=== PATIENT | male | born 1975 | race Caucasian/White ===

== ENCOUNTER 2020-05-26 20:51 | Inpatient (IN) | payer MEDICAID, OTHER ==
--- NOTE | 2020-05-26 21:00 | ED ---
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 Patient has a pickup order and brought by the police. According to the report, the patient has not been taking his medication. Patient states he is feeling more depressed than usual. States she doesn't feel like waking up and going to work. States he has not been to work for the past days. States that the psychiatric medication make him feel "cloudy and not right". He denies any suicidal, homicidal thoughts or ideations. Has no other complaints at this time. (Gideon Jackson) - Related Data Home Medications Medication Instructions Recorded Confirmed Naltrexone HCl [Revia] 50 mg PO DAILY 05/26/20 05/26/20 hydrOXYzine HCL [Atarax] 25 mg PO Q6H PRN 05/26/20 05/26/20 Previous Rx's Medication Instructions Recorded Folic Acid 1 mg PO DAILY #30 tab 05/31/20 Magnesium Oxide [Mag-Ox] 400 mg PO BID #60 tab 05/31/20 Multivitamins, Thera [Multivitamin 1 each PO DAILY #30 tab 05/31/20 (formulary)] Nicotine 14Mg/24Hr Patch [Habitrol] 1 patch TRANSDERM DAILY patch 05/31/20 QUEtiapine [SEROquel] 100 mg PO HS #30 tab 05/31/20 Sertraline [Zoloft] 100 mg PO DAILY #30 tab 05/31/20 Thiamine [Vitamin B-1] 100 mg PO DAILY #30 tab 05/31/20 Allergies Allergy/AdvReac Type Severity Reaction Status Date / Time Sulfa (Sulfonamide AdvReac Rapid Verified 05/26/20 22:36 Antibiotics) Heart Rate Review of Systems ROS Other: All systems not noted in ROS Statement are negative. <Gideon Jackson - Last Filed: 05/26/20 23:01> ROS Other: All systems not noted in ROS Statement are negative. <Rd Ramirez - Last Filed: 05/31/20 10:00> ROS Statement: Those systems with pertinent positive or pertinent negative responses have been documented in the HPI. Past Medical History Past Medical History: No Reported History History of Any Multi-Drug Resistant Organisms: None Reported Past Surgical History: No Surgical Hx Reported Past Psychological History: Anxiety, Depression Smoking Status: Current every day smoker Past Alcohol Use History: Daily Past Drug Use History: None Reported <Gideon Jackson - Last Filed: 05/26/20 23:01> - Past Family History family Family Medical History: No Reported History <JamesRd - Last Filed: 05/31/20 10:00> General Exam Limitations: no limitations General appearance: alert, in no apparent distress, other (Poor hygiene.) Head exam: Present: atraumatic, normocephalic, normal inspection Eye exam: Present: normal appearance, PERRL, EOMI Pupils: Present: normal accommodation ENT exam: Present: normal exam, normal oropharynx, mucous membranes moist, TM's normal bilaterally, normal external ear exam Neck exam: Present: normal inspection, full ROM. Absent: tenderness Respiratory exam: Present: normal lung sounds bilaterally. Absent: respiratory distress, wheezes, rales Cardiovascular Exam: Present: regular rate, normal rhythm, normal heart sounds Extremities exam: Present: normal inspection, full ROM, normal capillary refill. Absent: tenderness, pedal edema, joint swelling Back exam: Present: normal inspection, full ROM. Absent: tenderness, CVA tenderness (R), CVA tenderness (L) Neurological exam: Present: alert, oriented X3 Psychiatric exam: Present: normal affect, depressed Skin exam: Present: warm, dry, intact, normal color <Gideon Jackson - Last Filed: 05/26/20 23:01> Course Vital Signs 05/26/20 20:53 Temperature 98 F Pulse Rate 100 Respiratory 19 Rate Blood Pressure 143/99 O2 Sat by Pulse 97 Oximetry Medical Decision Making <Gideon Jackson - Last Filed: 05/26/20 23:01> - Lab Data Result diagrams: 05/28/20 06:47 05/30/20 06:34 <JamesRd - Last Filed: 05/31/20 10:00> - Medical Decision Making 45-year-old male presenting to emergency Department for psychiatric evaluation. Patient is here for a pickup order because he is not taking his medication and has increased depression. No homicidal, suicidal thoughts or ideations. At this time, patient care will be signed off to . (Gideon Jackson) - Lab Data Lab Results 05/26/20 05/27/20 Range/Units 21:19 00:53 Urine Opiates Screen Not Detected (NotDetected) Ur Oxycodone Screen Not Detected (NotDetected) Urine Methadone Screen Not Detected (NotDetected) Ur Propoxyphene Screen Not Detected (NotDetected) Ur Barbiturates Screen Not Detected (NotDetected) U Tricyclic Antidepress Not Detected (NotDetected) Ur Phencyclidine Scrn Not Detected (NotDetected) Ur Amphetamines Screen Not Detected (NotDetected) U Methamphetamines Scrn Not Detected (NotDetected) U Benzodiazepines Scrn Not Detected (NotDetected) Urine Cocaine Screen Not Detected (NotDetected) U Marijuana (THC) Screen Not Detected (NotDetected) Coronavirus (PCR) Not Detected (Not Detectd) Disposition <Gideon Jackson - Last Filed: 05/26/20 23:01> Is patient prescribed a controlled substance at d/c from ED?: No <Rd Ramirez - Last Filed: 05/31/20 10:00> Clinical Impression: Mood disorder Disposition: ADMITTED IP TO THIS HOSP Condition: Good
[2020-05-26 22:00] LABS: Amphetamine Screen,Urine Not Detected (NotDetected); Barbiturate Screen,Urine Not Detected (NotDetected); Benzodiazepines Screen,Urine Not Detected (NotDetected); Cocaine Screen,Urine Not Detected (NotDetected); Methadone Screen, Urine Not Detected (NotDetected); Opiate Screen,Urine Not Detected (NotDetected); Oxycodone Screen, Urine Not Detected (NotDetected); Phencyclidine Screen,Urine Not Detected (NotDetected); Tricyclic Antidepressant,Urine Not Detected (NotDetected); Urn Cannabinoid Scrn Not Detected (NotDetected)
[2020-05-27] MEDS ORDERED: ACETAMINOPHEN TAB 325 MG TAB PO PRN (01:50)
[2020-05-27] MEDS ORDERED: MAGNESIUM HYDROXIDE 2,400 MG/10 ML CUP PO PRN (01:50)
[2020-05-27] MEDS ORDERED: MAG HYDROX/AL HYDROX/SIMETH 30 ML CUP PO PRN (01:50)
[2020-05-27] MEDS ORDERED: hydrOXYzine HCL 25 MG TAB PO PRN (01:53)
[2020-05-27] MEDS ORDERED: LORazepam 2 MG/ML INJ IM PRN (02:34)
[2020-05-27] MEDS ORDERED: HALOPERIDOL LACTATE 5 MG/ML 1 ML VIAL IM PRN (02:36)
[2020-05-27] MEDS: NALTREXONE HCL 50 MG TAB PO SCH (08:48)
[2020-05-27] MEDS: NICOTINE 14MG/24HR PATCH TRANSDERM SCH (08:48)
[2020-05-27] MEDS ORDERED: CITALOPRAM HYDROBROMIDE 20 MG TAB PO SCH (09:00)
[2020-05-27 12:25] VITALS: BMI 18.8
[2020-05-27] MEDS: SERTRALINE 50 MG TAB PO SCH (12:36)
[2020-05-27] MEDS: LORazepam 1 MG TAB PO PRN ×2 (13:13→16:43)
--- NOTE | 2020-05-27 13:33 | P.HP ---
Psychiatric H&P - . H&P Date: 05/27/20 History & Physical: Allergies Allergy/AdvReac Type Severity Reaction Status Date / Time Sulfa (Sulfonamide AdvReac Rapid Verified 05/26/20 22:36 Antibiotics) Heart Rate Vital Signs Temp 97.4 F L 05/27/20 10:39 Pulse 93 05/27/20 02:13 Resp 18 05/27/20 02:13 BP 142/100 05/27/20 02:13 Pulse Ox 98 05/27/20 02:13 Intake & Output 05/26/20 05/27/20 05/27/20 18:59 06:59 18:59 Weight 56.3 kg 56.3 kg Laboratory Last Values Urine Opiates Screen Not Detected (NotDetected) 05/26/20 21:19 Ur Oxycodone Screen Not Detected (NotDetected) 05/26/20 21:19 Urine Methadone Screen Not Detected (NotDetected) 05/26/20 21:19 Ur Propoxyphene Screen Not Detected (NotDetected) 05/26/20 21:19 Ur Barbiturates Screen Not Detected (NotDetected) 05/26/20 21:19 U Tricyclic Antidepress Not Detected (NotDetected) 05/26/20 21:19 Ur Phencyclidine Scrn Not Detected (NotDetected) 05/26/20 21:19 Ur Amphetamines Screen Not Detected (NotDetected) 05/26/20 21:19 U Methamphetamines Scrn Not Detected (NotDetected) 05/26/20 21:19 U Benzodiazepines Scrn Not Detected (NotDetected) 05/26/20 21:19 Urine Cocaine Screen Not Detected (NotDetected) 05/26/20 21:19 U Marijuana (THC) Screen Not Detected (NotDetected) 05/26/20 21:19 Coronavirus (PCR) Not Detected (Not Detectd) 05/27/20 00:53 05/27/20 12:27 IDENTIFYING DATA: Patient is a 45-year-old male who currently lives alone in an efficiency has 2 kids and works as a home health care provider and is currently . HPI: Patient presented to the hospital yesterday on a pickup order by the police. According to ER report patient has not been taking his medications and appeared to be more depressed and not going to work. Patient's UDS was negative. Patient signed voluntary for admission. Patient was seen on the unit and appears to be disheveled in appearance poor hygiene and grooming. He claims that he is dealing with his "depression and anxiety" prior to coming in the hospital and states that this has been going on for several months now. He states that he has not been going to work and not caring for himself for the past 3 days. He states that "I just sit around" when asked what he does during the day when he is not at work. He states that he has had a poor appetite and has also been losing 15 pounds approximately the last month. He states that his family has been concerned about him and sent the senior laboratory technician to go and check on him. He claims that he was having suicidal thoughts at home about wanting to cut himself. He claims that he is not having any triggers at all in his life or any stressors. He states that he has not been taking his medications and has have poor sleep. He states that at nighttime he isn't having racing thoughts. He claims that currently he is having mild withdrawal symptoms including mainly anxiety and cravings. He denies any history of delirium tremens in the past or any withdrawal seizures from alcohol. Patient denies any suicidal or homicidal ideations intent or plan. At this time patient denies visual hallucinations however does state that he is hearing voices mainly in the nighttime however is vague about what they're saying to him. Patient denies any flight of ideas racing thoughts and increased in goal directed behavior. Patient admits to using alcohol daily approximately half a pint of whiskey and also claims that he smokes cigarettes PAST PSYCHIATRIC HISTORY: Patient states that he has a history of depression and anxiety. Patient was previously on Abilify, Celexa, naltrexone and Atarax however states that he has not been taking his medications regularly. He claims that he has been admitted to psychiatric hospital several times in the past however his last hospitalization was at [facility] in [place] in the summer. Patient denies any psychiatric outpatient follow-up. He claims that he follows up with his PCP who prescribes him his psychiatric medications. Patient denies any history of suicide attempts in the past. PMH:denies ALLERGIES: as per EMR CHEMICAL DEPENDENCY HISTORY: as per HPI FAMILY PSYCHIATRIC/SUBSTANCE USE HISTORY: Bipolar disorder in his sister. SOCIAL HISTORY: Patient was born and raised in [place] and also in [place]. He states that he completed his high school degree. He currently lives alone in an efficiency has 2 kids is and works as a home health care provider. He states that he has been to snf "25 times" for "supreme court justice stuff". He also claims that he's been charged in the past for aggravated assault. MENTAL STATUS EXAM: General Appearance: Patient appears to be with an stated age is alert, directable, and attempts to cooperate. Patient appears to have poor hygiene and grooming. Disheveled appearance. Behavior: Patient is seated without any agitated behavior. Speech: Patient's speech is fluent and nonpressured. Soft tone of voice. Mood/Affect: Patient reports their mood is depressed, affect is congruent and constricted. Suicidality/Homicidality: Patient denies having any homicidal ideation intent or plan. Denies any suicidal ideations intent or plan Perceptions: Patient denies any visual hallucinations and admits to auditory hallucinations mainly at nighttime. Though content/process: There is no evidence of any delusional thought content and thought process is linear and goal-directed. [place]. Memory and concentration: AOX3, grossly intact for the purposes of this session. Can spell "WORLD" backwards Judgment and insight: poor STRENGTHS/WEAKNESSES: strength is that patient is resilient. Weakness is that patient has poor judgment and has been noncompliant with his medications. INTELLECT: average IMPRESSIONS: Depressive disorder unspecified, rule out bipolar depression Anxiety disorder unspecified Alcohol use disorder, currently in withdrawal Nicotine dependence PLAN: -Patient is admitted under voluntary status to [facility]HU for stabilization of psychiatric symptoms and safety. Patient has signed adult voluntary form and medication consent and is placed in patient's chart. -Medications : Will start patient on Zoloft 50 mg daily for mood/anxiety. Seroquel 50 mg daily at bedtime for insomnia/mood stabilization. Vistaril when necessary for anxiety. -Ativan and Haldol PRN for agitation/aggression -Started thiamine, MVM for etoh use -CIWA protocol with Ativan PRN for ETOH withdrawal -Patient was counselled on substance abuse and desired to cut back on use -Patient was informed of the risks, benefits and side effects of the medication and patient verbally consented to taking the medications. Patient signed med consent form and was placed in chart. -Internal Medicine consult to perform medical evaluation and physical. -NRT - nicotine patch -SW on board for discharge planning. Encourage patient to participate in groups to work on coping skills. 05/27/20 13:24
[2020-05-27] MEDS: QUEtiapine 50 MG TAB PO SCH (21:43)
--- NOTE | 2020-05-27 22:22 | P.MDCNMH ---
History of Present Illness H&P Date: 05/27/20 Chief Complaint: medical evaluation 45 year old male with depresison patient comes in after being picked up by police for psychiatric evaluation , he has not been taking his medication as it makes him feel foggy. he has been experiencing depression and behavioral changes, refusing to go to work. and disheveled. denies suicidal ideation. he denies any medical concerns like fever, chills, chest pain , URI symptoms, or GI changes he is feeling some shakes and jitteriness, he feels like going through alcohol withdrawal , he admits to drinking a pint of alcohol on daily basis, denies any withdrawal seizures in the past, he also admits to tobacco smoking Review of Systems Pertinent positives as noted in HPI. All other systems were reviewed and are negative Past Medical History Past Medical History: No Reported History History of Any Multi-Drug Resistant Organisms: None Reported Past Surgical History: No Surgical Hx Reported Past Psychological History: Anxiety, Depression Smoking Status: Current every day smoker Past Alcohol Use History: Daily Past Drug Use History: None Reported - Past Family History family Family Medical History: No Reported History Medications and Allergies Home Medications Medication Instructions Recorded Confirmed Type ARIPiprazole [Abilify] 10 mg PO DAILY 05/26/20 05/26/20 History Citalopram Hydrobromide [CeleXA] 20 mg PO DAILY 05/26/20 05/26/20 History Naltrexone HCl [Revia] 50 mg PO DAILY 05/26/20 05/26/20 History hydrOXYzine HCL [Atarax] 25 mg PO Q6H PRN 05/26/20 05/26/20 History Allergies Allergy/AdvReac Type Severity Reaction Status Date / Time Sulfa (Sulfonamide AdvReac Rapid Verified 05/26/20 22:36 Antibiotics) Heart Rate Physical Exam Vitals: Vital Signs Temp Pulse Resp BP Pulse Ox 05/27/20 21:45 97.2 F L 104 H 18 130/93 96 05/27/20 18:29 98.4 F 05/27/20 16:41 114 H 123/91 05/27/20 13:20 99 148/106 05/27/20 10:39 97.4 F L 05/27/20 02:13 98.7 F 93 18 142/100 98 Intake and Output 05/27/20 05/27/20 05/27/20 06:59 14:59 22:59 Other: Weight 56.3 kg 56.3 kg Constitutional: No acute distress, conversant, pleasant Eyes: Anicteric sclerae, moist conjunctiva, Pupils equal round reactive to light ENMT: NC/AT Oropharynx clear, no erythema, or exudates Neck: Supple, FROM, no masses, or JVD No carotid bruits No thyromegaly Lungs: Clear to auscultation Clear to percussion Normal respiratory effort, no accessory muscle use Cardiovascular: Heart regular in rate and rhythm, No murmurs, gallops, or rubs No peripheral edema Abdominal: Soft Nontender, no guarding, rebound or rigidity Abdomen moving with respiration Normoactive bowel sounds No hepatomegaly, No splenomegaly No palpable mass No abdominal wall hernia noted Skin: Normal temperature, tone, texture, turgor No induration No subcutaneous nodules No rash, lesions No ulcers Extremities: No digital cyanosis No clubbing Pedal pulses intact and symmetrical Radial pulses intact and symmetrical No calf tenderness Psychiatric: Alert and oriented to person, place and time depresed affect fair judgement Neuro Muscles Strength 5/5 in all 4 extremities Sensation to light touch grossly present throughout Cranial nerves II-XII grossly intact No focal sensory deficits Lymphatics: no palpable cervical or supraclavicular , or inguinal lymph nodes Cranial Nerve Examination - Cranial Nerves Cranial Nerve II- Optic: Intact Cranial Nerve III- Oculomotor: Intact Cranial Nerve IV- Trochlear: Intact Cranial Nerve V- Trigeminal: Intact Cranial Nerve - Abducens: Intact Cranial Nerve VII- Facial: Intact Cranial Nerve VIII- Auditory: Intact Cranial Nerve IX- Glossopharyngeal: Intact Cranial Nerve X- Vagus: Intact Cranial Nerve XI- Accessory: Intact Cranial Nerve XII- Hypoglossal: Intact Assessment and Plan Assessment: depression , behavioral changes medical non compliance management per psych alcohol abuse alcohol withdrawal syndrome Benzo per CIWA scale thiamine counseled to cut back on alcohol tobacco smoking counseled to quit smoking nicotine replacement therapy offered follow up labs Thank you for allowing us to participate in the care of this patient. We will follow peripherally. Do not hesitate to contact us with questions. Someone can be reached from the [facility] hospitalist group at all hours of the day at [phone].
[2020-05-28 07:25] LABS: Basophils % (A) 1 %; Eosinophils # (A) 0.2 k/uL (0-0.7); Eosinophils % (A) 2 %; HCT 38.4 % (39.0-53.0); HGB 13.6 gm/dL (13.0-17.5); Lymphocytes # (A) 1.4 k/uL (1.0-4.8); Lymphocytes % (A) 21 %; MCH 35.5 pg (25.0-35.0); MCHC 35.4 g/dL (31.0-37.0); MCV 100.3 fL (80.0-100.0); Mean Platelet Volume 7.6; Monocytes # (A) 0.4 k/uL (0-1.0); Monocytes % (A) 6 %; Neutrophils # (A) 4.6 k/uL (1.3-7.7); Neutrophils % (A) 68 %; Platelet Count 139 k/uL (150-450); RBC 3.83 m/uL (4.30-5.90); RDW 12.5 % (11.5-15.5); WBC 6.8 k/uL (3.8-10.6)
[2020-05-28 07:36] LABS: ALT 42 U/L (4-49); AST 70 U/L (17-59); African American GFR (CKD) >90 (>60 ml/min/1.73 sqM); Albumin 3.5 g/dL (3.5-5.0); Alkaline Phosphatase 97 U/L (38-126); Anion Gap 1 mmol/L; Blood Urea Nitrogen 9 mg/dL (9-20); Calcium 9.8 mg/dL (8.4-10.2); Carbon Dioxide 37 mmol/L (22-30); Chloride 97 mmol/L (98-107); Cholesterol 171 mg/dL (<200); Glucose 91 mg/dL (74-99); HDL Cholesterol 107 mg/dL (40-60); LDL Cholesterol,Calculated 55 mg/dL (0-99); Non-African American GFR(CKD) >90 (>60 ml/min/1.73 sqM); Sodium 135 mmol/L (137-145); Total Bilirubin 1.6 mg/dL (0.2-1.3); Total Protein 6.1 g/dL (6.3-8.2); Triglycerides 46 mg/dL (<150)
[2020-05-28] MEDS: NICOTINE 14MG/24HR PATCH TRANSDERM SCH (08:38)
[2020-05-28] MEDS: NALTREXONE HCL 50 MG TAB PO SCH (08:39)
[2020-05-28] MEDS: MULTIVITAMINS, THERA 1 EACH TAB PO SCH (08:39)
[2020-05-28] MEDS: SERTRALINE 50 MG TAB PO SCH (08:39)
[2020-05-28] MEDS: FOLIC ACID 1 MG TAB PO SCH (08:39)
[2020-05-28] MEDS: THIAMINE 100 MG TAB PO SCH (08:39)
[2020-05-28] MEDS: LORazepam 1 MG TAB PO PRN ×2 (08:40→19:40)
[2020-05-28] MEDS ORDERED: POTASSIUM CHLORIDE ER 20 MEQ TAB.ER PO STA (08:59)
--- NOTE | 2020-05-28 10:26 | P.PN ---
Progress Note - Text Progress Note Date: 05/28/20 Interval History: Patient was seen lying in his bed this morning and was directable and agreeable to speak with filing writer in the office. Patient claims that she is feeling mild improvement today in terms of his mood. He claims that he was able to sleep better last night however states that he got up twice in the middle of the night. He claims that he wants to remain on the same dose of Seroquel for now to see if he sleeps better tonight and if not is willing to have this dose increased. He claims that he is not having suicidal thoughts any longer. He is continuing to isolate himself during the day at times and continues to have poor hygiene and grooming and was encouraged to bathe today. He appears to be more appropriate and directable during conversation however continues to be concrete and a poverty of content. He states that he talked to his family yesterday and he feels that he is" no presley to get out of here". At this time patient denies any suicidal or homical ideations, intent or plan. Patient denies any visual hallucinations and denies any paranoia or delusions. He does state that he is still hearing voices at times during the day however was vague about what they're telling him. Patient denies any side effects from the medications and has been compliant with meds. Mental Status Exam: General Appearance: Patient appears to be with an stated age is alert, directable, and attempts to cooperate. Patient appears to have poor hygiene and grooming. Disheveled appearance. Behavior: Patient is seated without any agitated behavior. Attempts to be more cooperative today. Speech: Patient's speech is fluent and nonpressured. Mood/Affect: Patient reports their mood is depressed, improving mildly, affect is congruent and constricted. Suicidality/Homicidality: Patient denies having any homicidal ideation intent or plan. Denies any suicidal ideations intent or plan Perceptions: Patient denies any visual hallucinations and admits to auditory hallucinations mainly at nighttime. Though content/process: There is no evidence of any delusional thought content and thought process is linear and goal-directed. [place], poverty of content. Memory and concentration: AOX3, grossly intact for the purposes of this session Judgment and insight: poor, improving mildly Assessment Depressive disorder unspecified, rule out bipolar depression Anxiety disorder unspecified Alcohol use disorder, currently in withdrawal Nicotine dependence Plan: -Patient continues to meet criteria for inpatient psychiatric admission for symptom stabilization and safety. Patient has signed adult voluntary form and medication consent and was placed in patient's chart. -Medications: Continue Zoloft 50 mg daily for mood/anxiety, continue titrated up tomorrow if necessary. Continue with Seroquel 50 mg daily at bedtime for insomnia/mood stabilization with plan to increase if patient continues to have difficulties with sleep and auditory hallucinations. Vistaril when necessary for anxiety. -thiamine, MVM for etoh use -CIWA protocol with Ativan PRN for ETOH withdrawal. continue to monitor closely. -When necessary Ativan and Haldol for agitation/aggression. -NRT - nicotine patch -SW on board for discharge planning. Encouraged the patient to participate in milieu.
[2020-05-28 14:40] LABS: Hemoglobin A1C 4.8 % (4.0-6.0)
[2020-05-28] MEDS: QUEtiapine 50 MG TAB PO SCH (20:22)
[2020-05-29 06:48] LABS: African American GFR (CKD) >90 (>60 ml/min/1.73 sqM); Anion Gap 1 mmol/L; Blood Urea Nitrogen 19 mg/dL (9-20); Calcium 10.1 mg/dL (8.4-10.2); Carbon Dioxide 37 mmol/L (22-30); Chloride 95 mmol/L (98-107); Glucose 89 mg/dL (74-99); Non-African American GFR(CKD) >90 (>60 ml/min/1.73 sqM); Sodium 133 mmol/L (137-145)
[2020-05-29] MEDS: SERTRALINE 50 MG TAB PO SCH (08:20)
[2020-05-29] MEDS: NALTREXONE HCL 50 MG TAB PO SCH (08:20)
[2020-05-29] MEDS: FOLIC ACID 1 MG TAB PO SCH (08:20)
[2020-05-29] MEDS: THIAMINE 100 MG TAB PO SCH (08:20)
[2020-05-29] MEDS: MULTIVITAMINS, THERA 1 EACH TAB PO SCH (08:21)
[2020-05-29] MEDS: NICOTINE 14MG/24HR PATCH TRANSDERM SCH (08:21)
--- NOTE | 2020-05-29 13:09 | P.PN ---
Progress Note - Text Progress Note Date: 05/29/20 Clinical Problems: Alcohol withdrawal, rule out alcohol withdrawal delirium, alcohol use disorder severe, alcohol induced mood disorder, rule out major depressive disorder Interim history: I reviewed the medical record, interviewed the patient and discussed his treatment and treatment plan during team meeting. He is a 45-year-old male admitted to the psychiatric unit involuntarily with a recent history of marked social withdrawal. His family called the police for safety check because she had not been to work in 3 days and did not answer the telephone. 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 He told his admitting psychiatrist that he was overwhelmed with feelings depression and anxiety. He did not leave the apartment and did not go to work because he "didn't want to." He also had thoughts of suicide including thoughts of cutting himself. He spent his time alone in his apartment drinking alcohol. Although he is a drink so about 1/2 pint of whiskey daily he was drinking at least 1 pint daily during the time he isolated himself. He talked about drinking until he passed out or until he ran out of whiskey. His treatment history is significant for "5 or 6" residential substance abuse treatment episodes. He was difficult to interview this morning because she was lethargic and difficulty concentrating and attending to the interview. He has had mild to moderate alcohol withdrawal symptoms with CIWA scores ranging from 4-14. However, last night he became acutely agitated and attempted to leave the unit. He could not be redirected and was sedated with 1 mg of Ativan and 4 mg of Haldol IM. He alleged that he had to leave the unit because he had to help his cousin change the lock. He believed his cousin was outside the door and needed assistance with changing the lock. Mental status exam: He presented as a disheveled-appearing middle-aged male who is moderately sedated. He made eye contact but had difficulty attending and concentrating to interview. He had no prominent physical abnormalities. He had a blunted facial expression. He was alert and oriented to person and place. He had psychomotor retardation but no abnormal movements. Her speech was not spontaneous and decreased rate and rhythm. His affect was depressed and not reactive. He denied current suicidal ideation and wishes. He denied homicidal ideation. He expressed feelings of hopelessness and helplessness. He did not express ideas reference, paranoid ideation or delusions. Her thinking was concrete but his associations were coherent, logical and goal directed. He denied hallucinations did not appear to be responding to internal stimuli. Assessment: He is a middle-age man with a history of an alcohol use disorder. He presented to unit voluntarily with complaints of depression, social withd hema, suicidal ideation and increased alcohol use. He had mild to moderate alcohol withdrawal symptoms until last night when he appears developed a delirium. He is currently sedated and there is no signs of confusion, delusions, paranoia or hallucinations. Plan: Continue inpatient treatment. Safety precautions. Continue Ativan 1 mg when necessary for alcohol withdrawal symptoms. Continue monitoring alcohol withdrawal severity with the CIWA. Monitor for signs and symptoms of delirium. Continue sertraline 50 mg daily and Seroquel 50 mg at bedtime for treatment of depression. Continue Haldol 64 mg IM or by mouth every 6 hours when necessary for agitation or aggression. Obtain collateral information from family. Encourage participation in therapeutic groups and activities. Evaluate clinical status response to treatment daily basis.
[2020-05-29] MEDS ORDERED: POTASSIUM CHLORIDE ER 20 MEQ TAB.ER PO STA (17:07)
[2020-05-29] MEDS: QUEtiapine 50 MG TAB PO SCH (21:47)
[2020-05-30 07:06] LABS: African American GFR (CKD) >90 (>60 ml/min/1.73 sqM); Anion Gap 5 mmol/L; Blood Urea Nitrogen 18 mg/dL (9-20); Calcium 9.7 mg/dL (8.4-10.2); Carbon Dioxide 32 mmol/L (22-30); Chloride 98 mmol/L (98-107); Glucose 82 mg/dL (74-99); Magnesium 1.2 mg/dL (1.6-2.3); Non-African American GFR(CKD) >90 (>60 ml/min/1.73 sqM); Potassium 3.9 mmol/L (3.5-5.1); Sodium 135 mmol/L (137-145)
[2020-05-30] MEDS: FOLIC ACID 1 MG TAB PO SCH (08:36)
[2020-05-30] MEDS: THIAMINE 100 MG TAB PO SCH (08:36)
[2020-05-30] MEDS: MULTIVITAMINS, THERA 1 EACH TAB PO SCH (08:36)
[2020-05-30] MEDS: SERTRALINE 50 MG TAB PO SCH (08:36)
[2020-05-30] MEDS: NALTREXONE HCL 50 MG TAB PO SCH (08:36)
[2020-05-30] MEDS: NICOTINE 14MG/24HR PATCH TRANSDERM SCH (08:36)
[2020-05-30] MEDS ORDERED: SERTRALINE 50 MG TAB PO ONE (08:45)
[2020-05-30 09:47] LABS: Appearance,Urine Clear (Clear); Bilirubin,Urine Negative (Negative); Blood,Urine Negative (Negative); Color,Urine Yellow; Glucose,Urine (UA) 2+ (Negative); Ketones,Urine Trace (Negative); Leukocyte Esterase,Urine Negative (Negative); Nitrite,Urine Negative (Negative); PH, Urine 7.5 (5.0-8.0); Protein,Urine Negative (Negative); Specific Gravity,Urine 1.018 (1.001-1.035)
--- NOTE | 2020-05-30 12:08 | P.PN ---
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 He denied experiencing alcohol withdrawal with the exception of a marked tremor. He denied feeling confused or paranoid. He remembers the incident early yesterday morning when he tried to leave the unit. He acknowledged that he could've been experiencing severe alcohol withdrawal. We completed the [facility] Assessment (Results below). After completing the assessment we discussed the results particularly the difficulties she experienced with verbal fluency and delayed recall. He revealed that he had a history of intravenous methamphetamine and heroin use. He had used methamphetamine for 7 years and heroin for 4 years. He is been abstinent for both for the last 7 years. He talked about having several overdoses including 2 that required hospitalization and resuscitation. He alleged that he was unresponsive for "several minutes" following an overdose and believes that he sustained some brain damage. He feels less depressed and anxious but continues half a restless sleep. His CIWA scores over the last 24 hours range from 0-1. Mental status exam: He presented as a casually groomed and somewhat disheveled appearing than 45-year-old male who was pleasant on approach. He made eye contact and attended the interview. He had a fine hand tremor but no prominent physical abnormalities. He had a bright facial expression. He had slight psychomotor retardation but no abnormal movements. His speech was spontaneous with normal rate and rhythm. His affect was blunted but stable and appropriate. He denied suicidal ideation and wishes. He denied homicidal ideation. He denied hopelessness, helplessness and worthlessness. He did not express ideas reference, paranoid ideation or delusions. His thinking was concrete. Associations were coherent and goal directed. He denied hallucinations and didn't appear to be responding to internal stimuli. On the [facility] Cognitive Assessment is told school was 22/30 and his Memory Index Score was 8/15. He showed no impairment with visual spatial/executive functioning, naming, attention or obstruction. He had poor language fluency (only naming 8 words during the fluency exam) and could recall only 2 of the 5 delayed recall words. He also had difficulties with orientation in that he thought today was Friday and it was at 27 of May. Assessment: Overall is much improved from admission. There is no evidence of alcohol withdrawal and delirium has fully resolved. He is showing impairments in cognitive functioning that could be related to his reported cerebral anoxia. Plan: Continue inpatient treatment. Safety precautions. Increase Zoloft to 100 mg daily and Seroquel to 100 mg at bedtime. Continue Haldol and Ativan IM or by mouth when necessary for agitation or aggression. Plan for discharge on 05/31/2020. Social work will coordinate discharge and aftercare services. Encourage continued participation in therapeutic groups and activities. Evaluate clinical status response to treatment daily basis.
[2020-05-30] MEDS ORDERED: POTASSIUM CHLORIDE ER 20 MEQ TAB.ER PO STA (12:25)
[2020-05-30] MEDS: MAGNESIUM OXIDE 400 MG TAB PO SCH ×2 (13:23→20:06)
[2020-05-30] MEDS ORDERED: QUEtiapine 100 MG TAB PO SCH (21:00)
[2020-05-31 07:04] VITALS: BP 100/65; PULSE 79; RESP 16; TEMP 97.5
[2020-05-31] MEDS: NICOTINE 14MG/24HR PATCH TRANSDERM SCH (08:02)
[2020-05-31] MEDS: NALTREXONE HCL 50 MG TAB PO SCH (08:03)
[2020-05-31] MEDS: MULTIVITAMINS, THERA 1 EACH TAB PO SCH (08:03)
[2020-05-31] MEDS: FOLIC ACID 1 MG TAB PO SCH (08:03)
[2020-05-31] MEDS: MAGNESIUM OXIDE 400 MG TAB PO SCH (08:03)
[2020-05-31] MEDS: THIAMINE 100 MG TAB PO SCH (08:03)
[2020-05-31] MEDS ORDERED: SERTRALINE 100 MG TAB PO SCH (09:00)
--- NOTE | 2020-05-31 10:48 | P.DS ---
Providers Date of admission: 05/27/20 01:46 Attending physician: Leonel Carbajal MD Consults: 05/27/20 01:50 Consult Physician Routine Consulting Provider: [facility] Consult Reason/Comments: H and P Do you want consulting provider notified?: Yes Primary care physician: Stated None - Discharge Diagnosis(es) (1) Alcohol withdrawal delirium, acute, hyperactive Current Visit: Yes Status: Acute Priority: Medium (2) Alcohol use disorder, severe, dependence Current Visit: Yes Status: Chronic Priority: High (3) Alcohol-induced mood disorder with depressive symptoms Current Visit: Yes Status: Acute Priority: Medium (4) Mild neurocognitive disorder due to another medical condition Current Visit: Yes Status: Chronic Priority: Medium (5) Methamphetamine use disorder, severe, in sustained remission Current Visit: Yes Status: Chronic Priority: Low (6) Opioid use disorder, severe, in sustained remission Current Visit: Yes Status: Chronic Priority: Low Hospital Course: HISTORY: He is a 45-year-old male admitted to the psychiatric unit involuntarily with a recent history of marked social withdrawal. His family called the police for safety check because she had not been to work in 3 days and did not answer the telephone. 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 He told his admitting psychiatrist that he was overwhelmed with feelings depression and anxiety. He did not leave the apartment and did not go to work because he "didn't want to." He also had thoughts of suicide including thoughts of cutting himself. He spent his time alone in his apartment drinking alcohol. Although he is a drink so about 1/2 pint of whiskey daily he was drinking at least 1 pint daily during the time he isolated himself. He talked about drinking until he passed out or until he ran out of whiskey. His treatment history is significant for "5 or 6" residential substance abuse treatment episodes. HOSPITAL COURSE: We admitted him psychiatric unit voluntarily under the care of this commercial lines underwriter. We provided a comprehensive biopsychosocial assessment. The healthcare network pricing consultant clock smith completed initial physical exam and medical history and diagnosed alcohol abuse and tobacco smoking. The healthcare network pricing consultant recommended thiamine, folic acid and multivitamins for the chronic alcohol use and nicotine replacement therapy for chronic tobacco use. We managed his alcohol withdrawal symptoms with Ativan using a CIWA scale. We continued his outpatient dose of ReVia 50 mg daily. He had mild to moderate alcohol withdrawal symptoms until the third day of admission when he developed acute delirium. He became confused and agitated and could not be redirected from attempting to leave the unit. He perseverated on needing to help his cousin change a lock. He received several doses of Ativan IM as well as Haldol 4 mg IM. We treated depression symptoms with a combination of Zoloft 100 mg daily and Seroquel at doses up to 100 mg at bedtime. He reported a marked improvement of his depression particularly as his alcohol withdrawal symptoms remitted. Once his alcohol or symptoms resolved he participated actively in therapeutic groups and activities. We completed the [facility] Cognitive Assessment (Results below). After completing the assessment we discussed the results particularly the difficulties she experienced with verbal fluency and delayed recall. He revealed that he had a history of intravenous methamphetamine and heroin use. He had used methamphetamine for 7 years and heroin for 4 years. He is been abstinent for both for the last 7 years. He talked about having several overdoses including 2 that required hospitalization and resuscitation. He alleged that he was unresponsive for "several minutes" following an overdose and believes that he sustained some brain damage. On the [facility] Cognitive Assessment is told school was 22/30 and his Memory Index Score was 8/15. He showed no impairment with visual spatial/executive functioning, naming, attention or obstruction. He had poor language fluency (only naming 8 words during the fluency exam) and could recall only 2 of the 5 delayed recall words. He also had difficulties with orientation in that he thought today was Friday and it was at 27 of May. MENTAL STATUS ON DISCHARGE: At the time of discharge she presented as a casually groomed and somewhat disheveled appearing than 45-year-old male who was pleasant on approach. He made eye contact and attended the interview. He had a fine hand tremor but no prominent physical abnormalities. He had a bright facial ex pression. He had slight psychomotor retardation but no abnormal movements. His speech was spontaneous with normal rate and rhythm. His affect was blunted but stable and appropriate. He denied suicidal ideation and wishes. He denied homicidal ideation. He denied hopelessness, helplessness and worthlessness. He did not express ideas reference, paranoid ideation or delusions. His thinking was concrete. Associations were coherent and goal directed. He denied hallucinations and didn't appear to be responding to internal stimuli. DISPOSITION: He lives with his parents after discharge. He is intake appointment scheduled with [facility] on 06/05/2020 at 10 AM. His academic medications at discharge included Atarax 25 mg by mouth every 6 hours when necessary for anxiety, ReVia 50 mg daily, Zoloft 100 mg daily, Seroquel 100 mg at bedtime and Habitrol 14 mg patch daily. Patient Condition at Discharge: Good Plan - Discharge Summary Discharge Rx Participant: No New Discharge Prescriptions: New Folic Acid 1 mg PO DAILY #30 tab Nicotine 14Mg/24Hr Patch [Habitrol] 1 patch TRANSDERM DAILY patch Magnesium Oxide [Mag-Ox] 400 mg PO BID #60 tab Multivitamins, Thera [Multivitamin (formulary)] 1 each PO DAILY #30 tab QUEtiapine [SEROquel] 100 mg PO HS #30 tab Thiamine [Vitamin B-1] 100 mg PO DAILY #30 tab Sertraline [Zoloft] 100 mg PO DAILY #30 tab Continue hydrOXYzine HCL [Atarax] 25 mg PO Q6H PRN PRN Reason: Anxiety Naltrexone HCl [Revia] 50 mg PO DAILY Discontinued Citalopram Hydrobromide [CeleXA] 20 mg PO DAILY ARIPiprazole [Abilify] 10 mg PO DAILY Discharge Medication List Naltrexone HCl [Revia] 50 mg PO DAILY 05/26/20 [History] hydrOXYzine HCL [Atarax] 25 mg PO Q6H PRN 05/26/20 [History] Folic Acid 1 mg PO DAILY #30 tab 05/31/20 [Rx] Magnesium Oxide [Mag-Ox] 400 mg PO BID #60 tab 05/31/20 [Rx] Multivitamins, Thera [Multivitamin (formulary)] 1 each PO DAILY #30 tab 05/31/20 [Rx] Nicotine 14Mg/24Hr Patch [Habitrol] 1 patch TRANSDERM DAILY patch 05/31/20 [Rx] QUEtiapine [SEROquel] 100 mg PO HS #30 tab 05/31/20 [Rx] Sertraline [Zoloft] 100 mg PO DAILY #30 tab 05/31/20 [Rx] Thiamine [Vitamin B-1] 100 mg PO DAILY #30 tab 05/31/20 [Rx] Follow up Appointment(s)/Referral(s): intake,intake [Other] - 06/05/20 10:00 am [facility] [[facility]STA[facility]] - 1 Week Patient Instructions/Handouts: How to Stop Smoking (DC), Depression (DC) Activity/Diet/Wound Care/Special Instructions: Activity and diet as tolerated. Avoid the use of street drugs and alcohol. Take all medications as prescribed. When you are in need of refills on your medications please contact your medical provider and/or outpatient psychiatrist to have this done. Please go to scheduled outpatient appointment for aftercare treatment. If symptoms return or become worse, call the crisis line at and/or go to the nearest emergency room for evaluation. Follow up with Primary Care Physician in regards to Potassium and Magnesium levels. Discharge Disposition: HOME SELF-CARE
--- NOTE | 2020-06-01 15:29 | CDI ---
Documentation Clarification Form Date: 06/01/2020 03:26:00 PM From: Jodi Bundy CCS Phone: If you have a question about this query, please contact [facility] [employer] at [phone] between 8am and 5pm Admit Date: 05/27/2020 01:46:00 AM Patient Name: Rommel Platt Visit Number: [id number] Discharge Date: 05/31/2020 01:25:00 PM ATTENTION: The Clinical Documentation Specialists (CDI) and [facility] Coding Staff appreciate your assistance in clarifying documentation. Please respond to the clarification below the line at the bottom and electronically sign. The CDI & [facility] Coding staff will review the response and follow-up if needed. Please note: Queries are made part of the Legal Health Record. If you have any questions, please contact the author of this message via ITS. Dr. Leonel Carbajal Patient has been described as poor appetite, losing 15 lbs in a month. History/Risk Factors: Alcohol dependence w/ withdrawal, Opoid/Amphetamine dependence, Depression, Cerebral anoxia Clinical Indicators: Unintended weight loss Patients weight is: 56.3 kg Patients height is: 5 ft 8 in Calculated BMI is: 18.8 Labs: Albumin 3.5, Total Protein 6.1 Muscle wasting: Severe temporal and buccal muscle wasting Treatments: Ensure Enlive, Increase PO intake from 50-75% Dietary Consult: 05/27 In order to capture the severity of condition associated with patient BMI of 18.8, a clinical diagnosis needs to be documented by the physician. Please clarify: Cachexia Underweight Malnutrition Mild Moderate Severe Other Unable to determine He is underweight from multiple conditions most prominently his alcohol use problem MTDD
== END 2020-05-31 13:25 | disposition home or self-care (01) | DRG 897 ==
LOC: EC 20:51 → 3MHU 05-27 01:46
PROVIDERS: ADMIT Psychiatry & Neurology Psychiatry; ATTEND Psychiatry & Neurology Psychiatry
DX: F10.231 Alcohol dependence with withdrawal delirium (principal); R45.851 Suicidal ideations; G93.1 Anoxic brain damage, not elsewhere classified; Z68.1 Body mass index [BMI] 19.9 or less, adult; F10.24 Alcohol dependence with alcohol-induced mood disorder; F11.21 Opioid dependence, in remission; F15.21 Other stimulant dependence, in remission; Z20.822 Contact with and (suspected) exposure to COVID-19; F32.9 Major depressive disorder, single episode, unspecified; F41.9 Anxiety disorder, unspecified; F17.210 Nicotine dependence, cigarettes, uncomplicated; R63.6 Underweight; R63.0 Anorexia; G47.00 Insomnia, unspecified; G31.84 Mild cognitive impairment of uncertain or unknown etiology; Z71.6 Tobacco abuse counseling; Z71.3 Dietary counseling and surveillance; Z91.14 Patient's other noncompliance with medication regimen; Z79.899 Other long term (current) drug therapy; Z88.2 Allergy status to sulfonamides; Z81.8 Family history of other mental and behavioral disorders
CPT/HCPCS: 80048; 80053; 80061; 80306; 81003; 82075; 83036; 83735; 84443; 85025; 87635; 99285